=== PATIENT | female | born 1985 | race Caucasian/White ===

== ENCOUNTER 2018-07-07 12:48 | Outpatient (CLI) | payer OTHER ==
--- NOTE | 2018-07-07 13:13 | RAD ---
XR Lumbar Spine 2 Or 3 View: 07/07/2018 12:00 AM CLINICAL INDICATION: Low back pain. Remote injury. COMPARISON: None. FINDINGS: Fracture:No fracture. Arthropathy:None of significance. Incidental findings:None of significance. There is accentuation of lumbar lordosis and a mild right convexity curvature. IMPRESSION: 1. No acute osseous abnormality.
== END 2018-07-07 12:49 | disposition home or self-care (01) ==
LOC: BICRAD 12:48
PROVIDERS: ATTEND Physician Assistant
DX: M54.5 Low back pain (principal)
CPT/HCPCS: 72100

== ENCOUNTER 2018-07-21 10:31 | Outpatient (CLI) | payer OTHER ==
--- NOTE | 2018-07-21 11:25 | MRI ---
MRI LUMBAR SPINE: HISTORY: Leg pain. Multiplanar, multisequence noncontrast enhanced MRI images lumbar spine. FINDINGS: For the purposes of this dictation, the last freely mobile vertebral body will be considered to be th e L5 vertebral body. All other vertebral bodies are numbered according to this. T12-L1: Unremarkable. L1-2: There is mild facet hypertrophy. The central canal and neural foramen are patent. L2-3: There is minimal facet hypertrophy. A small amount of fluid seen in the facet joints. Central c anal neural foramen are patent. L3-4: Disc desiccation seen. There is a broad-based disc bulge and annular fissure seen in the sales utility representative ior aspect of the annulus fibrosis. This results in mild central spinal stenosis. The neural foramen are patent. L4-5: Disc desiccation seen. There is a broad-based central disc protrusion and bilateral facet hyper trophy resulting in a moderate degree of central stenosis. Mild left L4-5 lateral recess stenosis seen. Mild neural foraminal narrowing seen bilaterally. L5-S1: Unremarkable. IMPRESSION: Multilevel disc desiccation at L3-4 and L4-5 with central protrusions as described above. Transcribed Date/Time: 07/21/2018 11:37 AM
== END 2018-07-21 10:32 | disposition home or self-care (01) ==
LOC: TBSIIMAG 10:31
PROVIDERS: ATTEND Physical Medicine & Rehabilitation
DX: M54.17 Radiculopathy, lumbosacral region (principal); R53.1 Weakness; M51.16 Intervertebral disc disorders with radiculopathy, lumbar region
CPT/HCPCS: 72148

== ENCOUNTER 2024-03-27 12:15 | Day surgery (SDC) | payer BC ==
[2024-03-26 09:54] VITALS: BMI 54.7
[2024-03-27 13:12] LABS: Anion Gap 14 mmol/L (10-20); BUN (Urea Nitrogen) 18 mg/dL (7.0-18.7); Calc. Creatinine Clearance 258 mL/min (70-130); Calcium 9.1 mg/dL (7.8-10.44); Carbon Dioxide 25 mmol/L (22-29); Chloride 105 mmol/L (98-107); Estimated GFR 111; Glucose 121 mg/dL (70-105); Potassium 4.5 mmol/L (3.5-5.1); Sodium 139 mmol/L (136-145)
[2024-03-27] MEDS ORDERED: Bupivacaine 0.25% HCL 30 ML VIAL ONE (14:57)
[2024-03-27] MEDS ORDERED: Bupivacaine PF 0.5% 30 ML VIAL ONE (14:57)
[2024-03-27] MEDS ORDERED: EPINEPHrine 1 MG/ML VIAL ONE (14:58)
[2024-03-27] MEDS ORDERED: CEFAZOLIN 2 GM VIAL ONE (15:03)
[2024-03-27] MEDS ORDERED: Heparin 5,000 UNITS/ML VIAL ONE (15:06)
[2024-03-27] MEDS ORDERED: fentaNYL PF 100 MCG/2 ML SYRINGE ONE (15:08)
[2024-03-27] MEDS ORDERED: PROPOFOL 20 ML ONE (15:08)
[2024-03-27] MEDS ORDERED: Lidocaine 1% PF 5 ML VIAL ONE (15:08)
[2024-03-27] MEDS ORDERED: Rocuronium Bromide 10 MG/ML (10ML VIAL) ONE (15:08)
[2024-03-27] MEDS ORDERED: Sterile Water 10 ML ONE (15:19)
[2024-03-27] MEDS ORDERED: Dexamethasone 4 mg/ml Vial ONE (16:16)
[2024-03-27] MEDS ORDERED: Ondansetron PF 4 MG/2 ML Vial ONE (16:16)
[2024-03-27] MEDS ORDERED: SUGAMMADEX SODIUM 200 MG/2 ML VIAL ONE (16:19)
== END 2024-03-27 17:56 | disposition home or self-care (01) ==
LOC: SDC 12:15
PROVIDERS: ATTEND Plastic Surgery
PROC: 0J9P0ZZ Drainage of Left Lower Leg Subcutaneous Tissue and Fascia, Open Approach (ICD-10-PCS; principal; 2024-03-27)
DX: S81.002D Unspecified open wound, left knee, subsequent encounter (principal); E11.9 Type 2 diabetes mellitus without complications; Z79.82 Long term (current) use of aspirin; Z79.899 Other long term (current) drug therapy; Z88.6 Allergy status to analgesic agent; Z98.890 Other specified postprocedural states; Z90.49 Acquired absence of other specified parts of digestive tract
CPT/HCPCS: 36416; 80048; 87070; 87077; 87205; 97139; J0171; J0665; J1100; J1644; J2405; J2704